=== PATIENT | male | born 1975 | race Caucasian/White ===

== ENCOUNTER 2020-10-30 21:12 | Outpatient (CLI) | payer OTHER | END 2020-10-30 21:13 | disposition home or self-care (01) | LOC: COV 21:12 | PROVIDERS: ATTEND Family Medicine | DX: M79.10 Myalgia, unspecified site (principal); Z20.822 Contact with and (suspected) exposure to COVID-19 ==

== ENCOUNTER 2022-12-29 08:29 | Outpatient (CLI) | payer BC ==
--- NOTE | 2022-12-30 09:31 | XRAY Report ---
PROCEDURE: Hip w/Pelvis 2-3V LT INDICATIONS: LEFT HIP PAIN TECHNIQUE: AP pelvis with lateral view(s) of the left hip(s). COMPARISON: None. FINDINGS: Bones: No fractures or dislocations. No suspicious bony lesions. Mild degenerative joint disease in hips and sacroiliac joints bilaterally. A small indeterminate sclerotic focus is noted in the prox imal right femur. Soft tissues: No suspicious soft tissue calcifications or masses. IMPRESSION: 1. Mild degenerative joint disease. 2. A small indeterminate sclerotic focus in the proximal right femur. That has nonaggressive appearan ce, most likely benign such as a small enchondroma or bone island. Reviewed by: Nicky Velasquez MD on 12/30/2022 9:29 AM PDT Approved by: Nicky Velasquez MD on 12/30/2022 9:29 AM PDT Station ID: [id number]
== END 2022-12-29 08:30 | disposition home or self-care (01) ==
LOC: DI.S 08:29
PROVIDERS: ATTEND Physician Assistant
DX: M16.12 Unilateral primary osteoarthritis, left hip (principal)

== ENCOUNTER 2023-08-19 07:50 | Outpatient (CLI) | payer BC ==
--- NOTE | 2023-08-19 11:05 | MRI Report ---
PROCEDURE: SHOULDER WO - LT INDICATIONS: LEFT SHOULDER PAIN TECHNIQUE: Noncontrast oblique coronal T2 fast spin echo with fat saturation, oblique sagittal T1 spin echo and T2 fast spin echo with fat saturation, axial T1 spin echo and T2 fast spin echo with fat saturation t hrough the shoulder. COMPARISON: None. FINDINGS: Image quality: Excellent. Rotator cuff: Low-grade bursal surface partial-thickness tear involving distal supraspinatus at its i nsertion on humeral head is seen extending to musculotendinous junction. Distal infraspinatus tendino sis is noted. The subscapularis tendon is intact. No full-thickness rotator cuff tendon rupture. No r otator cuff muscle atrophy on sagittal images. Bones and bursae: No bone marrow contusions or fractures. [id number] acromioclavicular joint o steoarthritic changes are seen with joint space narrowing, subchondral sclerosis and downward osteoph yte formation depressing on musculotendinous junction of supraspinatus. The acromion demonstrates con ventional anatomy, without an os acromiale. Small amount of joint effusion and subacromial subdeltoid bursal fluid is noted, no gross loose bodies. Capsule and soft tissues: There is signal abnormality and fraying of superior anterior labrum at 12 t o 2:00 position concerning for superior anterior labral tear. The long head of the biceps tendon demo nstrates normal location and morphology. The rotator interval appears normal, without fibrosis. The coracohumeral ligament is normal in thickness. IMPRESSION: 1. Low-grade bursal surface partial-thickness tear involving distal supraspinatus extending to muscul otendinous junction. Distal infraspinatus tendinosis. No full-thickness rotator cuff tendon rupture. 2. 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 No fracture or dislocation. Small join t effusion and subacromial subdeltoid bursal fluid, no gross loose bodies. 3. Suggestion of superior anterior labral tear at 12 to 2:00 position. Reviewed by: Roberto Cooley MD on 08/19/2023 11:04 AM PST Approved by: Roberto Cooley MD on 08/19/2023 11:04 AM PST Station ID: [id number]
== END 2023-08-19 07:51 | disposition home or self-care (01) ==
LOC: DI 07:50
PROVIDERS: ATTEND Physician Assistant Medical
DX: M75.112 Incomplete rotator cuff tear or rupture of left shoulder, not specified as traumatic (principal); M19.012 Primary osteoarthritis, left shoulder; M25.412 Effusion, left shoulder